=== PATIENT | male | born 1970 | race Caucasian/White ===

== ENCOUNTER 2023-12-31 08:38 | Inpatient (IN) ==
--- NOTE | 2023-11-29 16:17 | PAT Medication Instructions ---
Medication Instructions Date of Service November 29, 2023 Home Medications cholecalciferol (vitamin D3) 125 mcg (5,000 unit) tablet (Vitamin D3) 125 mcg PO QAM gabapentin 600 mg tablet (Neurontin) 600 mg PO TID omeprazole 20 mg tablet,delayed release 20 mg PO QAM oxycodone-acetaminophen 10 mg-325 mg tablet 1 tab PO Q6H PRN Pain DO NOT take the morning of surgery cholecalciferol (vitamin D3) 125 mcg (5,000 unit) tablet (Vitamin D3) 125 mcg PO QAM Take morning of surgery With a small sip of water, OTHERWISE NOTHING TO EAT OR DRINK AFTER MIDNIGHT: gabapentin 600 mg tablet (Neurontin) 600 mg PO TID omeprazole 20 mg tablet,delayed release 20 mg PO QAM oxycodone-acetaminophen 10 mg-325 mg tablet 1 tab PO Q6H PRN Pain (if needed) Take evening before surgery gabapentin 600 mg tablet (Neurontin) 600 mg PO TID oxycodone-acetaminophen 10 mg-325 mg tablet 1 tab PO Q6H PRN Pain (if needed) Other Notes If you have any questions please call us at [phone] or [phone] or [phone] or [phone]
--- NOTE | 2023-12-06 11:57 | Anesthesiology Consultation ---
Date of Service December 06, 2023 Assessment & Plan (1) Encounter for pre-operative examination: - awaiting surgeon ordered medical clearance, Dr. Weston Jean Baptiste-12/17/23. PAT testing to be faxed to PCP. - spinal cord stimulator. Chart Review Chart Review: Pending: Refer to Additional Notes / Consult section and Patient seen in Pre Admission Testing Teaching & Discussion Pre-Anesthesia Teaching/Discussion Notes: Instructed NPO after midnight before surgery, except medications with 15 cc of water. Medication instructions provided according to the PAT guidelines. History Surgery Operation Date: 12/31/23 10:35 Proposed Procedures p L5-S1 Decompression and Fusion, Spinal Cord Monitoring - Mendoza De La Garza, Height/Weight Height: 6 ft 2 in Weight: 125.3 kg Allergies Allergy/AdvReac Type Severity Reaction Status Date / Time pregabalin [From Lyrica] AdvReac Severe "completely Verified 11/29/23 13:13 out of it, snowed me" ampicillin AdvReac Intermediate Hives Verified 11/29/23 13:13 dexamethasone AdvReac Intermediate Hives Verified 11/29/23 13:13 tegaderm Allergy Severe Blister/Sca Uncoded 11/29/23 13:13 r Medications Home Medications Medication Instructions Recorded Confirmed Last Taken cholecalciferol (vitamin D3) 125 125 mcg PO QAM 04/09/23 11/29/23 04/15/23 mcg (5,000 unit) tablet (Vitamin 0500 D3) gabapentin 600 mg tablet 600 mg PO TID 04/09/23 11/29/23 04/15/23 19:00 (Neurontin) omeprazole 20 mg tablet,delayed 20 mg PO QAM 04/09/23 11/29/23 04/16/23 05:00 release oxycodone-acetaminophen 10 mg-325 1 tab PO Q6H PRN Pain 11/29/23 11/29/23 Unknown mg tablet Past Medical History Medical History (Updated 12/06/23 @ 12:04 by Mary Ann Wyatt PA-C) GERD (gastroesophageal reflux disease) controlled, stable per pt History of COVID-19 2020, resolved Seasonal allergies Spinal cord stimulator status present, patient aware to bring cnc mill programmer Patient denies h/o stroke, seizures, heart attack, heart failure, DM, HTN, blood clots/DVTs or blood transfusions. Exercise / Class Metabolic Activity II 4-5 Yardwork/Stairs/Walk up hill (denies chest discomfort or shortness of breath with one flight of stairs) Past Surgical History Surgical History History of cholecystectomy History of colonoscopy History of microdiscectomy lumbar History of prostate surgery urolift procedure History of tonsillectomy Hx of arthroscopy of shoulder Left x2 Status post fusion of sacroiliac joint 04/16/23 [facility] Past Anesthesia History No Hx of Anesthesia Complications and No Family Hx of Anesthesia Complications History of PONV No Hx of PONV and No Hx of Motion Sickness Social History Smoking Status: Never smoker Do You Dip or Chew Tobacco: No Hx Alcohol Use: No Hx Substance Use: No substance use type: does not use Review of Systems Patient denies chest pain, shortness of breath, dyspnea on exertion, snoring, witnessed apneas, fever, chills, cough, wheezing, or palpitations. Physical Exam Vital Signs Vitals BP 132/84 P 66 TEMP 97.8 SP02 97% on RA RESP 18 Physical Patient resting comfortably in chair in no acute distress, alert and oriented, responding appropriately throughout visit Full cervical extension range of motion without pain TMD 3.5 finger breadths Mallampati Score 3 Dentition: intact, denies chipped or loose teeth, caps/crowns, implants or bridges Lungs: normal respiratory effort. Good air movement, clear throughout to auscultation, no adventitious breath sounds Cardiac: regular rate and rhythm, no murmurs noted Carotid arteries: negative bruit bilat Lab Results Anesthesia Preop Results Results Anesthesia Widget: WBC 4.15 K/ul (4.8-10.8) L 12/06/23 Hgb 15.1 g/dl (14.0-18.0) 12/06/23 Hct 43.4 % (42.0-52.0) 12/06/23 Plt 199 K/uL (130-400) 12/06/23 Na 140 mmol/L (136-145) 12/06/23 K 4.7 mmol/L (3.5-5.1) 12/06/23 Cl 108 mmol/L (98-107) H 12/06/23 CO2 27 mmol/L (21-32) 12/06/23 BUN 15 mg/dl (6-23) 12/06/23 Creat 1.11 mg/dl (0.6-1.4) 12/06/23 Glucose Level 97 mg/dl (70-99(Fasting)) 12/06/23 PT 10.6 Seconds (9.0-12.0) 12/06/23 PTT 26 Seconds (21-31) 12/06/23 INR 1.0 (0.9-1.1) 12/06/23 Urine Color Yellow 12/06/23 Urine Appearance Clear (Clear) 12/06/23 Urine pH 5.0 (4.5-7.5) 12/06/23 Urine Specific [place] 1.008 (1.000-1.030) 12/06/23 Urine Protein Negative (Negative) 12/06/23 Urine Glucose (UA) Negative (Negative) 12/06/23 Urine Ketones Negative (Negative) 12/06/23 Urine Blood Negative (Negative) 12/06/23 Urine Nitrite Negative (Negative) 12/06/23 Urine Bilirubin Negative (Negative) 12/06/23 Urine Urobilinogen Negative (Negative) 12/06/23 Urine Leukocyte Esterase Negative (Negative) 12/06/23 Blood Type B Positive 12/06/23 Antibody Screen NEGATIVE 12/06/23 Testing Electrocardiogram Date: 04/02/23 Sinus bradycardia, rate 57 bpm Chest X-Ray Date: 12/01/23 No acute cardiopulmonary findings.
[2023-12-31] MEDS: VANCOMYCIN HCL 2,000 MG in SODIUM CHLORIDE 0.9% 500 ML IV SCH (09:25)
[2023-12-31] MEDS ORDERED: MIDAZOLAM HCL 1 MG/ML 2ML VIAL ONE (09:28)
[2023-12-31] MEDS ORDERED: fentaNYL citrate PF 100 MCG/2 ML VIAL ONE (09:29)
[2023-12-31] MEDS ORDERED: LIDOCAINE 2% 2 ML VIAL/AMP(20MG/ML) INFIL ONE ×2 (09:30)
[2023-12-31] MEDS ORDERED: ROCURONIUM BROMIDE 10 MG/ML 5 ML VIAL IV ONE ×3 (09:31)
[2023-12-31] MEDS ORDERED: PROPOFOL IV EMULSION 10 MG/ML 20 ML VIAL IV ONE (09:31)
[2023-12-31] MEDS: LR 15ML/HR IV SCH (09:36)
[2023-12-31] MEDS: GABAPENTIN 900 MG DOSE PO SCH (09:37)
[2023-12-31] MEDS: CeleBREX 200 MG CAP PO SCH (09:37)
[2023-12-31] MEDS: ACETAMINOPHEN 500 MG TAB PO SCH (09:37)
[2023-12-31] MEDS: LR 60ML/HR IV SCH (09:38)
--- NOTE | 2023-12-31 09:39 | History & Physical Bridge Note ---
Date of Service December 31, 2023 History & Physical Bridge Note I have examined the patient, reviewed the History & Physical and in the interval since the performance of the History & Physical I have noted the following changes of clinical significance: no changes noted
--- NOTE | 2023-12-31 09:40 | History & Physical Report ---
Date of Service December 31, 2023 Assessment & Plan (1) Neurogenic claudication due to lumbar spinal stenosis: Plan: L5-S1 decompression and fusion History of Present Illness Chief Complaint: Back and leg pain Primary Care Provider: Weston Jean Baptiste DO This is a 53-year-old male well-known to us presents with persistent back and leg pain after failing course of nonoperative care is here for surgical intervention. Allergies Allergy/AdvReac Type Severity Reaction Status Date / Time pregabalin [From Lyrica] AdvReac Severe "completely Verified 12/31/23 09:22 out of it, snowed me" ampicillin AdvReac Intermediate Hives Verified 12/31/23 09:22 dexamethasone AdvReac Intermediate Hives Verified 12/31/23 09:22 tegaderm Allergy Severe Blister/Sca Uncoded 12/31/23 09:22 r Home Medications Medication Instructions Recorded Confirmed Type cholecalciferol (vitamin D3) 125 125 mcg PO QAM 04/09/23 12/31/23 History mcg (5,000 unit) tablet (Vitamin D3) gabapentin 600 mg tablet 600 mg PO TID 04/09/23 12/31/23 History (Neurontin) omeprazole 20 mg tablet,delayed 20 mg PO QAM 04/09/23 12/31/23 History release oxycodone-acetaminophen 10 mg-325 1 tab PO Q6H PRN Pain 11/29/23 12/31/23 History mg tablet Past Med/Surg History Problem List (Updated 12/31/23 @ 09:39 by Mendoza De La Garza DO) Neurogenic claudication due to lumbar spinal stenosis Sacroiliitis Encounter for pre-operative examination Medical History (Updated 12/31/23 @ 09:39 by Mendoza De La Garza DO) Seasonal allergies Spinal cord stimulator status present, patient aware to bring net developer programmer GERD (gastroesophageal reflux disease) controlled, stable per pt History of COVID-19 2019, 2020, resolved Surgical History Hx of arthroscopy of shoulder Left x2 Status post fusion of sacroiliac joint 04/16/23 [facility] History of prostate surgery urolift procedure History of microdiscectomy lumbar History of colonoscopy History of cholecystectomy History of tonsillectomy Social History Smoking Status: Never smoker Second Hand Exposure: No; Do You Dip or Chew Tobacco: No; Tobacco Cessation Education Requested by Patient: No Hx Alcohol Use: No Hx Substance Use: No Preferred Language: [place] Communication Ability: Effective Adjunct Psychology Professor Required: No Beliefs That Will Affect Care: None Current Living Situation: Spouse Other Information That Helps Us Care for You: No Feels Safe at Home: Yes Safety Concerns: Feels Safe At This Time Assistive Devices: Glasses Physical Exam Physical Exam: Patient is alert and oriented heart regular rhythm Lungs clear Results & Data Results & Data Vital Signs (Past 12 Hours) Vital Signs Temp Pulse Resp BP Pulse Ox O2 Del Method 12/31/23 09:27 36.8 C 69 20 126/87 96 Room Air
[2023-12-31] MEDS ORDERED: ATROPINE SULFATE 0.1 MG/ML 10ML SYR IV PRN (09:54)
[2023-12-31] MEDS ORDERED: ONDANSETRON INJ 2 MG/ML 2 ML VIAL IV PRN ×2 (09:54→13:58)
[2023-12-31] MEDS ORDERED: ePHEDrine sulfate 50 MG/ML AMP IV PRN (09:54)
[2023-12-31] MEDS ORDERED: PROMETHAZINE HCL 6.25 MG in SODIUM CHLORIDE 0.9% 50 ML IV PRN (09:54)
[2023-12-31] MEDS ORDERED: SUGAMMADEX SODIUM 200 MG/2 ML VIAL IV ONE ×2 (09:58)
[2023-12-31] MEDS ORDERED: ONDANSETRON INJ 2 MG/ML 2 ML VIAL ONE ×2 (10:30)
[2023-12-31] MEDS: BUPIVACAINE/EPINEPHRINE 0.25% 1:200,000 30 ML VIAL ONE (10:35)
[2023-12-31] MEDS: ceFAZolin 330 MG/ML 1 GM VIAL ONE (10:35)
[2023-12-31] MEDS ORDERED: KETAMINE HCL 10MG/ML SYR ONE (10:37)
[2023-12-31] MEDS ORDERED: HYDROmorphone INJ 2 MG/ML SYR/VIAL ONE (10:52)
[2023-12-31] MEDS ORDERED: ePHEDrine sulfate 50 MG/5 ML SYR ONE (11:41)
[2023-12-31] MEDS: SURGICEL ABSORB HEMOSTAT 2IN X 14IN TOP ONE (11:51)
[2023-12-31] MEDS: FLOSEAL HEMOSTATIC MATRIX 10ML TOP ONE (12:01)
--- NOTE | 2023-12-31 12:05 | Operative Report ---
Post Operative Report Pre & Post Diagnosis Operation Date: 12/31/23 10:35 Pre-Op Diagnosis: Lumbar spinal stenosis with radiculopathy Post-Op Diagnosis: Same I identified the patient and participated in the time-out.: Yes Procedure Operation Date: 12/31/23 10:35 Actual Procedures #1 lumbar decompression with bilateral medial facetectomies and foraminotomies L4-L5 L5-S1. #2 posterior spinal fusion L5-S1. #3 placement posterior instrumentation L5-S1. #4 interbody fusion L5-S1. #5 placement of Spira 12 x 26 mm x 2 at L5-S1. #6 placement locally harvested morselized autograft posterior gutters. #7 placement infuse collagen sponge combined with Koros in the posterior lateral gutters and os design and interbody space. #8 application of versa wrap over the exposed dura. Surgeon Mendoza De La Garza, DO Advertising Manager Robin Stevenson Estimated Blood Loss 350 Findings See Below Patient is 6 foot 2 weighing over 122 kg with a BMI in excess of 34. The patient's body was did contribute to significant technical difficulty with positioning exposure and the procedure itself and at least 50% increased operative time. Specimens None Indications This is a 53-year-old male well-known to us that presents above his diagnosis after failing course of nonoperative care is here for surgical invention. Description of Procedure Patient was met with identified informed consent obtained. Patient was then taken to the operative suite underwent intubation placed in a prone position on the Gary table on top of the Atul frame. All bony promises well-padded I suspected to ensure no external precipice spinal. This point the lumbar spine was prepped and draped in normal sterile fashion. Sharp dissection with the assistance of Bovie cautery performed down to and exposing the lamina and transverse processes of L5 and sacral ala bilaterally. From caudal to cephalad fashion complete laminectomy of L5 was performed including bilateral medial facetectomies and foraminotomies addressing severe lateral recess and foraminal stenosis. Then performed a partial laminectomy of L4 with bilateral medial facetectomies to address all subarticular disease. Pedicle screws were then placed in L5 and S1 levels bilaterally with assistance of fluoroscopy and the pr operly sized ariela placed. By way of transforaminal approach on the left a discectomy of L5-S1 was performed endplates corrected to subcortical and bone a 12 x 26 mm Spira cage filled with os design bone graft tapped in position. Then proceeded to the right transforaminal region at L5-S1. A discectomy performed endplates guided to subcortical main bone and a second 12 x 26 mm spiral cage filled with os design tapped into position. The rods were then locked in final position bilaterally. The transverse processes of L5 and sacral ala burred to subcortical bleeding bone. Infuse collagen sponge, with Koros and local autograft placed in the posterior gutters. 15 round VICENTE drain inserted. The incision was then closed with 1 Vicryl the fascia 2-0 Vicryl subcutaneously and 4 Monocryl for fascial closure. Steri-Strips sterile dressing placed. Patient waken taken to PACU stable condition. Please note spinal cord monitoring was utilized at the procedure no changes noted. Robin Steevnson was present at the entire surgery and while the patient positioning complex portions of the surgery and final skin closure. Im ordering 20 grams of Triple [place] Collagen Powder ([id number] [id number]) to treat an incision wound that was caused by a spine procedure. The incision is approximately 2 cm(W) x 4 cm(L) into the joint (D) in size and is a full thickness wound. Triple [place] collagen comes in 1 gram packets so 20 packets were ordered. Given the size of the wound, with light to moderate exudate I chose to order a 20 day supply. The patient will be provided instructions for proper application of the collagen wound kit. The patient will be asked to apply the collagen powder daily and then cover it with sterile dressings dispensed. Collagen was selected as I expect the collagen to attract monocytes and fibroblasts, act as a sacrificial substrate for MMPs, and ultimately proved a matrix for tissue and vessel growth. The collagen will act as a primary dressing in this scenario. It is medically necessary for proper healing of these wounds to improve bioavailability and contact with each wound surface, this is also to help prevent infection of wounds and promote healing ultimately leading to a better healing outcome and limit the risk of infection. I attest to the content of the Intraoperative Record and any orders documented therein. Any exceptions are noted below.
--- NOTE | 2023-12-31 12:19 | Fluoroscopy Report ---
FL lumbar spine 2-3V CLINICAL HISTORY: L5-S1 D/F COMPARISON STUDY: None FLUOROSCOPY TIME: 23.1 seconds FLUOROSCOPY IMAGES: 2 EXPOSURE DOSE: 22.45 mGy FINDINGS: Fusion of the left SI joint. Discectomy with posterior interbody ariela and screw fusion at L5 -S1. The hardware appears intact. IMPRESSION: Fluoroscopic assistance as above. ACT 112: Negative or not required by law. Electronically signed by: Mauricio Kennedy M.D. 12/31/2023 12:17 PM
[2023-12-31] MEDS: fentaNYL citrate PF 100 MCG/2 ML VIAL IV PRN (12:30)
[2023-12-31] MEDS: HYDROmorphone INJ 2 MG/ML SYR/VIAL IV PRN (12:51)
[2023-12-31] MEDS ORDERED: PROMETHAZINE 12.5 MG/50.5 ML BAG IV PRN (13:58)
[2023-12-31] MEDS ORDERED: hydrOXYzine HCl 25 MG TAB PO PRN (13:58)
[2023-12-31] MEDS ORDERED: FAMOTIDINE 20 MG TAB PO PRN (13:58)
[2023-12-31] MEDS ORDERED: SOD PHOSPHATE/SOD BIPHOSPHATE ENEMA 132 ML BTL PR PRN (13:58)
[2023-12-31] MEDS ORDERED: diphenhydrAMINE Capsule 25 MG CAP PO PRN (13:58)
[2023-12-31] MEDS ORDERED: ONDANSETRON 4 MG OD TAB PO PRN (13:58)
[2023-12-31] MEDS ORDERED: DO NOT ADMINISTER FLU VACCINE PRN (13:58)
[2023-12-31] MEDS ORDERED: ALUMINUM/MAGNESIUM SUSP 30 ML UDC PO PRN (13:58)
[2023-12-31] MEDS ORDERED: ACETAMINOPHEN 1,000 MG/100 ML VIAL IV PRN (13:58)
[2023-12-31] MEDS ORDERED: HYDROmorphone INJ 0.5 MG/0.5 ML SYR IV PRN (13:58)
[2023-12-31] MEDS ORDERED: LORazepam 2 MG/1 ML VIAL IV PRN (13:58)
[2023-12-31] MEDS ORDERED: bisacodyL 10 MG SUPP PR PRN (13:58)
[2023-12-31] MEDS ORDERED: NALOXONE HCL 0.4 MG/1 ML VIAL/CARP IV PRN (13:58)
[2023-12-31] MEDS ORDERED: LORazepam 0.5 MG TAB PO PRN (13:58)
[2023-12-31] MEDS ORDERED: HYDROmorphone INJ 1 MG/ML SYRINGE IV PRN (13:58)
[2023-12-31] MEDS ORDERED: DO NOT ADMINISTER PNEUMOCOCCAL VACCINE PRN (13:58)
[2023-12-31] MEDS ORDERED: MAGNESIUM HYDROXIDE SUSP 30 ML UDC PO PRN (13:58)
[2023-12-31] MEDS ORDERED: METOCLOPRAMIDE HCL INJ 5 MG/ML 2 ML VIAL IV PRN (13:58)
[2023-12-31] MEDS ORDERED: CYCLOBENZAPRINE HCL 10 MG TAB PO PRN (13:58)
[2023-12-31] MEDS: FAMOTIDINE/PF 20 MG/2 ML VIAL IV ONE (14:13)
[2023-12-31] MEDS: KETOROLAC 30 MG/ML VIAL IV SCH (14:27)
[2023-12-31] MEDS: GABAPENTIN 600 MG TAB PO SCH (14:36)
--- NOTE | 2023-12-31 14:43 | Anesthesiology Progress Note ---
Date of Service December 31, 2023 Anesthesia Post Procedure Vital Signs Vital Signs: Temp Pulse Resp BP Pulse Ox O2 Del Method O2 Flow Rate 12/31/23 14:28 36.6 C 91 H 16 132/86 95 Nasal Cannula 1 12/31/23 13:50 36.8 C 92 H 18 115/74 93 Nasal Cannula 1 12/31/23 13:40 71 12 140/91 92 Nasal Cannula 2 12/31/23 13:30 90 18 118/99 95 Nasal Cannula 2 12/31/23 13:20 83 11 L 145/87 H 96 Nasal Cannula 2 12/31/23 13:10 36.6 C 72 15 141/91 H 100 Nasal Cannula 2 12/31/23 13:00 91 H 15 130/82 100 Nasal Cannula 2 12/31/23 12:50 91 H 15 130/82 100 Room Air 12/31/23 12:40 83 12 129/90 100 Oxymask 6 12/31/23 12:30 81 12 146/90 H 100 Oxymask 6 12/31/23 12:20 36.0 C L 85 18 144/89 H 100 Oxymask 6 12/31/23 09:27 36.8 C 69 20 126/87 96 Room Air Pain Intensity Right Lower Back: Pain Intensity: 4 Transfer of Care Handoff Completed per policy Notes Mental Status: alert / awake / arousable and participated in evaluation Patient Amnestic to Procedure: Yes Nausea / Vomiting: adequately controlled Pain: adequately controlled Airway Patency, RR, SpO2: stable & adequate BP & HR: stable & adequate Hydration State: stable & adequate Anesthetic Complications: no major complications apparent and Pt Satisfied with anesthetic care
[2023-12-31] MEDS: CLINDAMYCIN/D5W 600 MG/50 ML BAG IV SCH (18:06)
[2023-12-31] MEDS: DOCUSATE SODIUM/SENNA 50/8.6MG TAB PO SCH (21:34)
[2023-12-31] MEDS: ACETAMINOPHEN 500 MG TAB PO PRN (21:34)
[2024-01-01] MEDS: POLYETHYLENE (MIRALAX) 17 GM PACK PO SCH (06:11)
[2024-01-01 07:30] LABS: Basophils # (auto) 0.02 K/uL (0.00-0.20); Basophils % (auto) 0.4 %; Eosinophils # (auto) 0.07 K/uL (0.00-0.50); Eosinophils % (auto) 1.4 %; Hematocrit (blood only) 35.5 % (42.0-52.0); Hemoglobin 12.2 g/dl (14.0-18.0); Immature Granulocytes # (auto) 0.02 K/uL (0.01-0.20); Immature Granulocytes % (auto) 0.4 %; Lymphocytes # (auto) 1.05 K/uL (1.20-3.40); Lymphocytes % (auto) 21.5 %; Mean Corpuscular Hemoglobin 30.3 pg (25.0-34.0); Mean Corpuscular Hgb Conc 34.4 g/dL (32.0-36.0); Mean Corpuscular Volume 88.3 fL (80.0-100.0); Mean Platelet Volume 9.6 fL (9.4-12.4); Monocytes % (auto) 12.3 %; Neutrophils # (auto) 3.13 K/uL (1.40-6.50); Platelet Count 147 K/uL (130-400); RDW Coefficient of Variation 11.9 % (11.5-14.5); RDW Standard Deviation 38.5 fL (36.4-46.3); Red Blood Count 4.02 M/uL (4.70-6.10); White Blood Count 4.89 K/ul (4.8-10.8)
[2024-01-01] MEDS: CHOLECALCIFEROL 125 MCG (5,000 UNITS) TAB PO SCH (07:52)
[2024-01-01] MEDS: PANTOprazole 40 MG TAB PO SCH (07:53)
[2024-01-01 08:35] LABS: Anion Gap 5 (3-11); Blood Urea Nitrogen 12 mg/dl (6-23); Calcium 8.8 mg/dl (8.6-10.3); Carbon Dioxide 27 mmol/L (21-32); Chloride 109 mmol/L (98-107); Creatinine Clr Calc Pharmacy 88.6 ml/min; Glucose 122 mg/dl (70-99(Fasting)); Sodium 141 mmol/L (136-145)
--- NOTE | 2024-01-01 09:22 | Orthopedic Progress Note ---
Date of Service January 01, 2024 Assessment & Plan (1) Neurogenic claudication due to lumbar spinal stenosis: Plan: At this point initiate physical therapy. Monitor his progress and VICENTE output throughout the day. He may discharge home Wednesday or Wednesday. Admission and Anticipated Discharge Date Admission Date: December 31, 2023 Subjective Patient's back pain is controlled leg pain improved Physical Exam Physical Exam: Patient is sitting up in bed. Is comfortable. Good strength testing. Results & Data Vital Signs (Past 12 Hours) Vital Signs Temp Pulse Pulse Resp BP Pulse Ox O2 Del Method 01/01/24 08:00 36.6 C 71 18 103/67 95 Room Air 01/01/24 03:05 36.6 C 83 16 111/68 96 Room Air 12/31/23 22:59 36.9 C 83 16 109/67 95 Room Air Queries Orthopedic Spine Obesity: Yes
[2024-01-01] MEDS: oxyCODONE/ACETAMINOPHEN 10-325 TAB PO PRN (13:46)
--- NOTE | 2024-01-02 07:30 | Discharge Summary ---
Date of Service January 02, 2024 Admission HPI Per Admitting Provider This is a 53-year-old male well-known to us presents with persistent back and leg pain after failing course of nonoperative care is here for surgical intervention. Discharge Data Procedures Performed Operation Date: 12/31/23 10:35 Actual Procedures p L5-S1 Decompression and Fusion, Spinal Cord Monitoring(Not Applicable) - Mendoza De La Garza DO Hospital Course (1) Neurogenic claudication due to lumbar spinal stenosis: Patient is a 53-year-old male with history physical examination radiographic images consistent with the above-mentioned diagnosis. This reason is brought to the operating room on 12/31/2019 for undergone a lumbar decompression at L5-S1. This performed Dr. De La Garza under general anesthesia he left the operating room with a VICENTE drain in place and was transferred to PACU in stable condition. He is then transferred to the orthopedic floor. He was placed on GI DVT prophylaxis and pain control measures. He was seen by physical therapy postop day 1. He has been walking laps in the hospital and postop day #2 he is deemed safe for home discharge. His discharge instructions were to change his dressing once daily till there is no drainage then he may leave it uncovered. He may also start to shower when his incision was dry. He shouted anything heavier than 5 to [address] until he is seen in the office. He will be seen in the office approximately 2 weeks out from surgery or sooner if he develops any increasing pain drainage from the incision fevers or chills.
[2024-01-02 08:16] VITALS: RESP 18; TEMP 98.2; O2SAT 94
[2024-01-02 09:52] VITALS: BP 114/76; PULSE 83
== END 2024-01-02 11:48 | disposition home or self-care (01) | DRG 402 ==
LOC: ASU 08:38 → 3N 13:40